=== PATIENT | female | born 1970 | race Hispanic/Latino ===

== ENCOUNTER 2024-09-18 16:34 | Emergency (ER) | payer SELFPAY ==
[2024-09-18] MEDS ORDERED: methylPREDNISolone Sod Succ/PF 125 MG/2 ML VIAL ONE (18:28)
[2024-09-18] MEDS ORDERED: Oxymetazoline HCl 0.05% (30 ML BOT) ONE (18:28)
[2024-09-18] MEDS ORDERED: Ipratropium/Albuterol 3 ML NEB ONE (18:28)
[2024-09-18 18:35] LABS: #Basophils 0.03 10x3/uL (0.0-0.2); %Basophils 0.5 % (0.0-1.0); %Eosinophils 0.5 % (0.0-10.0); %Lymphocytes 26.9 % (21.0-51.0); %Monocytes 9.7 % (0.0-10.0); %Neutrophils 62.2 % (42.0-75.0); Hematocrit 39.1 % (36.0-47.0); Hemoglobin 13.1 g/dL (12.0-16.0); Mean Corpuscular HGB CONC 33.5 g/dL (32.0-36.0); Mean Corpuscular Hemoglobin 28.8 pg (27.0-31.0); Mean Corpuscular Volume 85.9 fL (78.0-98.0); Mean Platelet Volume 11.2 fL (7.4-10.4); Platelet Count 237 10x3/uL (130-400); RBC Distribution Width 13.4 % (11.5-14.5); Red Blood Cell (RBC) Count 4.55 mill/uL (4.20-5.40)
[2024-09-18] MEDS ORDERED: Ibuprofen 200 MG TAB ONE (18:48)
[2024-09-18 18:56] LABS: ALT (SGPT) 29 U/L (Less than 34); AST (SGOT) 38 U/L (11-34); Alkaline Phosphatase 80 U/L (40-110); Anion Gap 13 mmol/L (10-20); BUN (Urea Nitrogen) 10 mg/dL (9.8-20.1); Bilirubin, Total 0.3 mg/dL (0.3-1.2); Calc. Creatinine Clearance 0 mL/min (70-130); Calcium 8.7 mg/dL (7.8-10.44); Carbon Dioxide 26 mmol/L (22-29); Chloride 103 mmol/L (98-107); Estimated GFR 100; Globulin 3.6 g/dL (2.4-3.5); Glucose 98 mg/dL (70-105); Potassium 3.8 mmol/L (3.5-5.1); Protein, Total 7.6 g/dL (6.0-8.3); Sodium 138 mmol/L (136-145)
[2024-09-18 19:00] LABS: Troponin I Less than 0.010 ng/mL (< 0.028)
== END 2024-09-18 19:20 | disposition home or self-care (01) ==
LOC: ERS 16:34
DX: J45.901 Unspecified asthma with (acute) exacerbation (principal); B34.9 Viral infection, unspecified; I10 Essential (primary) hypertension
CPT/HCPCS: 71046; 80053; 83880; 84484; 85025; 87428; 93005; 94640; 96374; J2919; J7620